=== PATIENT | male | born 1935 | race African-American/Black ===

== ENCOUNTER 2019-08-22 10:03 | Emergency (ER) | payer MEDICARE, BC ==
[~2019-08-22] VITALS: Ht 182.9 cm; Wt 76.0 kg
[2019-08-22 15:19] VITALS: BP 129/65
== END 2019-08-22 15:21 | disposition home or self-care (01) ==
LOC: ER 10:29
DX: S00.83XA Contusion of other part of head, initial encounter (principal); M54.2 Cervicalgia; I10 Essential (primary) hypertension; W01.198A Fall on same level from slipping, tripping and stumbling with subsequent striking against other object, initial encounter; Y93.89 Activity, other specified; Y92.89 Other specified places as the place of occurrence of the external cause; Z98.890 Other specified postprocedural states
CPT/HCPCS: 99284

== ENCOUNTER 2024-06-27 06:57 | Emergency (ER) | payer MEDICARE, BC ==
[~2024-06-27] VITALS: Ht 182.9 cm; Wt 68.1 kg
[2024-06-27 07:08] VITALS: O2SAT 98
[2024-06-27 08:42] LABS: BASOPHILS % 0.4 % (0.0-2.0); EOSINOPHILS % 0.1 % (0.0-5.0); HEMOGLOBIN. 12.6 g/dL (14.0-18.0); LYMPHOCYTES % 8.4 % (20.0-50.0); MEAN CORPUSCULAR HEMOGLOBIN 30.6 pg (28.0-32.0); MEAN CORPUSCULAR HGB CONC 34.9 g/dL (31.0-37.0); MEAN CORPUSCULAR VOLUME 87.7 fL (80.0-94.0); MEAN PLATELET VOLUME 8.4 fl (7.4-10.4); MONOCYTES % 6.3 % (2.0-8.0); NEUTROPHILS % 84.8 % (40.0-76.0); PLATELET 234 x1000/uL (130-400); RED BLOOD CELL COUNT 4.11 mill/uL (4.7-6.1); RED CELL DISTRIBUTION WIDTH 14.1 % (11.6-14.6); WHITE BLOOD COUNT 8.7 x1000/uL (4.5-11.0)
[2024-06-27 08:49] LABS: CHLORIDE 102 mEq/L (98-107); POTASSIUM 4.4 mEq/L (3.5-5.1); SODIUM 138 mEq/L (136-145)
[2024-06-27 08:50] LABS: CALCIUM 9.7 mg/dL (8.7-10.4); CARBON DIOXIDE 28 mEq/L (21-32)
[2024-06-27 08:52] LABS: CLARITY URINE CLEAR (CLEAR); COLOR URINE YELLOW (YELLOW); GLUCOSE URINE NEGATIVE (NEGATIVE); KETONES URINE NEGATIVE (NEGATIVE); LEUKOCYTE ESTERASE URINE NEGATIVE (NEGATIVE); NITRITE URINE NEGATIVE (NEGATIVE); OCCULT BLOOD URINE NEGATIVE (NEGATIVE); PROTEIN URINE NEGATIVE (NEGATIVE)
[2024-06-27 08:55] LABS: CREATININE 1.3 mg/dL (0.6-1.3); GLUCOSE 173 mg/dL (70-105); UREA NITROGEN BLOOD 22 mg/dL (9-23)
[2024-06-27 08:56] LABS: TROPONIN I HIGH SENSITIVITY 5 ng/L (3.0-53)
[2024-06-27 08:57] LABS: ALANINE AMINOTRANSFERASE 27 IU/L (10-49); ALBUMIN 4.4 g/dL (3.2-4.8); ASPARTATE AMINOTRANSFERASE 25 IU/L (<34); BILIRUBIN TOTAL 0.9 mg/dL (0.1-1.0); PROTEIN TOTAL 7.5 g/dL (6.0-8.3)
[2024-06-27 10:09] VITALS: BP 116/68; PULSE 94; RESP 18; TEMP 36.78072; O2SAT 98
== END 2024-06-27 10:10 | disposition home or self-care (01) ==
LOC: ER 06:57
DX: B34.9 Viral infection, unspecified (principal); E11.9 Type 2 diabetes mellitus without complications; I10 Essential (primary) hypertension; Z20.822 Contact with and (suspected) exposure to COVID-19
CPT/HCPCS: 36415; 71045; 80053; 81003; 84484; 85025; 87426; 87804; 93005; 99285